=== PATIENT | male | born 1970 | race Caucasian/White ===

== ENCOUNTER 2018-01-30 15:36 | Emergency (ER) | payer OTHER ==
[~2018-01-30] VITALS: Ht 182.9 cm; Wt 85.0 kg
[2018-01-30] MEDS ORDERED: SODIUM CHLORIDE 0.9% 1,000ML IVBOLUS ONE (16:00)
[2018-01-30 16:49] LABS: BASOPHILS # (AUTO) 0.01 x10^3/uL (0-0.1); BASOPHILS % (AUTO) 0 % (0-1); EOSINOPHILS # (AUTO) 0.05 x10^3/uL (0-0.4); EOSINOPHILS % (AUTO) 1 % (1-7); LYMPHOCYTES # (AUTO) 0.69 x10^3/uL (1-3.4); LYMPHOCYTES % (AUTO) 7 % (22-44); MD NO; MEAN CORPUSCULAR HEMOGLOBIN 31.2 pg (27.5-34.5); MEAN CORPUSCULAR HGB CONC 33.3 g/dL (33.2-36.2); MEAN CORPUSCULAR VOLUME 93.7 fL (81-97); MEAN PLATELET VOLUME 7.7 fL (7.4-10.4); MONOCYTES % (AUTO) 7 % (2-9); NEUTROPHILS # (AUTO) 8.31 x10^3/uL (1.8-6.8); NEUTROPHILS % (AUTO) 85 % (42-75); PLATELET COUNT 265 x10^3/uL (130-400); RED CELL DISTRIBUTION WIDTH 14.5 % (9.4-14.8)
[2018-01-30 16:54] LABS: ALANINE AMINOTRANSFERASE 19 U/L (12-78); ALBUMIN 3.4 g/dL (3.4-5.0); ANION GAP 6 mmol/L (5-15); CALCIUM 8.9 mg/dL (8.5-10.1); CHLORIDE 101 mmol/L (98-107)
[2018-01-30 17:00] LABS: ALKALINE PHOSPHATASE 147 U/L (45-117); BILIRUBIN,TOTAL 0.5 mg/dL (0.2-1.0); TOTAL PROTEIN 8.1 g/dL (6.4-8.2)
[2018-01-30 17:27] LABS: SEDIMENTATION RATE 73 mm/hr (0-10)
[2018-01-30 17:30] VITALS: BP 152/88
[2018-01-30] MEDS ORDERED: CEFAZOLIN PMX 1GM/50ML 50 ML ONE (17:51)
[2018-01-30] MEDS ORDERED: CEFAZOLIN PMX 2GM/50ML 50 ML IVPB ONE (18:00)
== END 2018-01-30 18:34 | disposition home or self-care (01) ==
LOC: ED 18:20
DX: L03.116 Cellulitis of left lower limb (principal); Z98.890 Other specified postprocedural states
CPT/HCPCS: 36415; 73564; 80053; 83605; 85025; 85651; 86140; 87040; 96365; 99285; J0690; J7030

== ENCOUNTER 2018-02-04 11:49 | Inpatient (IN) | payer OTHER ==
[~2018-02-04] VITALS: Ht 182.9 cm; Wt 88.0 kg
[2018-02-04] MEDS ORDERED: BUTALB/APAP/CAFFEINE 50MG/325MG/40MG PO ONE (12:30)
[2018-02-04] MEDS ORDERED: LIDOCAINE-MPF 1%, 2ML INFIL ONE (12:30)
[2018-02-04 12:31] VITALS: BP 131/97
[2018-02-04] MEDS: LACTATED RINGERS 1,000 ML IV SCH (12:39)
[2018-02-04] MEDS ORDERED: SULF1TAB24 PO (12:40)
[2018-02-04] MEDS ORDERED: ONDA4TAB7 PO (12:40)
[2018-02-04] MEDS ORDERED: ASPI1TAB31 PO (12:40)
[2018-02-04] MEDS ORDERED: MIDAZOLAM 1 MG/ML, 2ML ONE (12:42)
[2018-02-04] MEDS ORDERED: FENTANYL PF 250 MCG/5ML ONE (12:42)
[2018-02-04] MEDS ORDERED: PROPOFOL 10 MG/ML, 20ML ONE (12:55)
[2018-02-04] MEDS ORDERED: LIDOCAINE-MPF 2% ,5ML ONE (12:55)
[2018-02-04] MEDS ORDERED: ONDANSETRON ODT 8 MG PO ONE (13:00)
[2018-02-04] MEDS ORDERED: OxyconTIN ER 10 MG TAB.ER PO ONE (13:00)
[2018-02-04] MEDS ORDERED: GABAPENTIN 300 MG CAPSULE PO ONE (13:00)
[2018-02-04] MEDS ORDERED: LABETALOL 5MG/ML, 20ML ONE (13:19)
[2018-02-04] MEDS ORDERED: VANCOMYCIN PER PHARMACY MC ONE (13:30)
[2018-02-04] MEDS ORDERED: VANCOMYCIN 1,700 MG in SODIUM CHLORIDE 0.9% 250 ML IV ONE (13:30)
[2018-02-04] MEDS ORDERED: CEFAZOLIN 1,000 MG ONE ×2 (13:33)
[2018-02-04] MEDS ORDERED: WATER-INJECTION,STERILE 10 ML IV ONE (13:34)
[2018-02-04] MEDS ORDERED: BUPIVACAINE/PF 0.25% ONE (14:14)
[2018-02-04] MEDS ORDERED: DEXAMETHASONE 4 MG/ML, 1ML ONE ×2 (14:57)
[2018-02-04] MEDS ORDERED: PROMETHAZINE 25 MG/ML, 1ML IV PRN (15:30)
[2018-02-04] MEDS ORDERED: hydrALAzine 20 MG/ML, 1ML IV PRN (15:30)
[2018-02-04] MEDS ORDERED: MORPHINE SULFATE 4 MG/ML, 1ML IVPush PRN (15:30)
[2018-02-04] MEDS ORDERED: HALOPERIDOL 5 MG/ML IV PRN (15:30)
[2018-02-04] MEDS ORDERED: LABETALOL 5MG/ML, 20ML IV PRN (15:30)
[2018-02-04] MEDS ORDERED: OXYcodone 5 MG/5 ML ORAL.SOL UDC PO PRN (15:30)
[2018-02-04] MEDS: FENTANYL PF 100 MCG/2ML IV PRN ×3 (16:15→16:25)
[2018-02-04] MEDS ORDERED: FENTANYL PF 100 MCG/2ML ONE (16:17)
[2018-02-04] MEDS ORDERED: morphine SULFATE 10 MG/ML, 1ML IVPush PRN (16:30)
[2018-02-04] MEDS ORDERED: VANCOMYCIN PER PHARMACY MC PRN (16:30)
[2018-02-04] MEDS ORDERED: BISACODYL 10 MG SUPP PR PRN (16:30)
[2018-02-04] MEDS ORDERED: MEPERIDINE/PF 50 MG/ML ONE (16:35)
[2018-02-04] MEDS: MEPERIDINE/PF 25MG/0.5ML IVPush PRN ×2 (16:35→16:45)
[2018-02-04] MEDS ORDERED: PROMETHAZINE 25 MG/ML, 1ML ONE (17:06)
[2018-02-04] MEDS: DOCUSATE 100 MG CAPSULE PO SCH (21:05)
[2018-02-04] MEDS: OXYcodone/APAP 5/325MG TABLET PO PRN (21:05)
[2018-02-04] MEDS: CEFAZOLIN PMX 2GM/50ML 50 ML IVPB SCH (22:56)
[2018-02-04 23:43] VITALS: BP 112/71
[2018-02-05 03:39] VITALS: BP 124/76
[2018-02-05] MEDS: OXYcodone/APAP 5/325MG TABLET PO PRN ×5 (03:50→23:37)
[2018-02-05 05:33] LABS: ANION GAP 7 mmol/L (5-15); CALCIUM 8.9 mg/dL (8.5-10.1); CHLORIDE 102 mmol/L (98-107)
[2018-02-05 05:35] LABS: CREATININE 0.99 mg/dL (0.7-1.3)
[2018-02-05 05:37] LABS: BASOPHILS # (AUTO) 0.03 x10^3/uL (0-0.1); BASOPHILS % (AUTO) 0 % (0-1); EOSINOPHILS % (AUTO) 0 % (1-7); LYMPHOCYTES # (AUTO) 0.84 x10^3/uL (1-3.4); LYMPHOCYTES % (AUTO) 9 % (22-44); MD NO; MEAN CORPUSCULAR HGB CONC 33.5 g/dL (33.2-36.2); MEAN CORPUSCULAR VOLUME 92.6 fL (81-97); MEAN PLATELET VOLUME 6.8 fL (7.4-10.4); MONOCYTES # (AUTO) 0.74 x10^3/uL (0.2-0.8); MONOCYTES % (AUTO) 8 % (2-9); NEUTROPHILS # (AUTO) 7.59 x10^3/uL (1.8-6.8); NEUTROPHILS % (AUTO) 83 % (42-75); PLATELET COUNT 420 x10^3/uL (130-400); RED BLOOD COUNT 3.79 x10^6/uL (4.38-5.82); RED CELL DISTRIBUTION WIDTH 13.7 % (9.4-14.8)
[2018-02-05] MEDS: CEFAZOLIN PMX 2GM/50ML 50 ML IVPB SCH ×3 (06:33→23:35)
[2018-02-05] MEDS ORDERED: BUTALB/APAP/CAFFEINE 50MG/325MG/40MG PO PRN (07:30)
[2018-02-05 07:33] VITALS: BP_SYST 104
[2018-02-05] MEDS: DOCUSATE 100 MG CAPSULE PO SCH ×2 (08:49→20:37)
[2018-02-05] MEDS ORDERED: VANCOMYCIN PER PHARMACY MC PRN (14:00)
[2018-02-05] MEDS ORDERED: LIDOCAINE-MPF 1%, 2ML ONE (14:26)
[2018-02-05 14:27] VITALS: BP 149/85
[2018-02-05] MEDS ORDERED: PHARMACOKINETIC MONITORING MC PRN (16:00)
[2018-02-05] MEDS: VANCOMYCIN 1,700 MG in SODIUM CHLORIDE 0.9% 250 ML IV SCH (16:00)
[2018-02-05] MEDS: LACTATED RINGERS 1,000 ML IV SCH (16:01)
[2018-02-05 18:58] VITALS: BP 121/73
[2018-02-06 01:33] VITALS: BP 135/92
[2018-02-06] MEDS: VANCOMYCIN 1,700 MG in SODIUM CHLORIDE 0.9% 250 ML IV SCH ×2 (04:13→17:15)
[2018-02-06] MEDS: CEFAZOLIN PMX 2GM/50ML 50 ML IVPB SCH ×3 (06:40→22:34)
[2018-02-06 07:44] VITALS: BP 160/81
[2018-02-06] MEDS: OXYcodone/APAP 5/325MG TABLET PO PRN ×2 (07:50→19:11)
[2018-02-06] MEDS: DOCUSATE 100 MG CAPSULE PO SCH ×2 (09:11→20:49)
[2018-02-06 13:31] VITALS: BP 125/86
[2018-02-06 20:20] VITALS: BP 140/82
[2018-02-07 03:32] VITALS: BP 137/88
[2018-02-07] MEDS: VANCOMYCIN 1,700 MG in SODIUM CHLORIDE 0.9% 250 ML IV SCH (04:47)
[2018-02-07] MEDS: OXYcodone/APAP 5/325MG TABLET PO PRN (04:56)
[2018-02-07] MEDS: CEFAZOLIN PMX 2GM/50ML 50 ML IVPB SCH (08:05)
[2018-02-07] MEDS: DOCUSATE 100 MG CAPSULE PO SCH (08:05)
[2018-02-07 08:09] VITALS: BP 136/81
[2018-02-07] MEDS ORDERED: HYDR-3307 PO (11:56)
== END 2018-02-07 12:04 | disposition home or self-care (01) | DRG 487 ==
LOC: OUT 11:49 → ORIP 16:06 → 4NOR 17:39 → DCLOUNGE 02-07 11:53
PROVIDERS: ADMIT Orthopaedic Surgery; ATTEND Orthopaedic Surgery
PROC: 0SBD0ZZ Excision of Left Knee Joint, Open Approach (ICD-10-PCS; principal; 2018-02-04 13:45)
PROC: 02HV33Z Insertion of Infusion Device into Superior Vena Cava, Percutaneous Approach (ICD-10-PCS; 2018-02-05)
PROC: B548ZZA Ultrasonography of Superior Vena Cava, Guidance (ICD-10-PCS; 2018-02-05)
DX: M00.062 Staphylococcal arthritis, left knee (principal); D63.8 Anemia in other chronic diseases classified elsewhere; M17.12 Unilateral primary osteoarthritis, left knee; Z80.1 Family history of malignant neoplasm of trachea, bronchus and lung; R51 Headache
CPT/HCPCS: 36415; 36569; 76937; 77001; 80048; 85025; 87070; 87075; 87077; 87147; 87186; 87205; 89051; 89060; J0690; J1100; J2175; J2250; J2550; J2704; J3010; J3370; J3490; Q0162; C1751; J7050; J7120